=== PATIENT | male | born 1965 | race Caucasian/White ===

== ENCOUNTER 2023-07-05 15:40 | Emergency (ER) | payer BC, SELFPAY ==
[2023-07-05 15:43] VITALS: BP 133/98
[2023-07-05] MEDS: KEFLEX 500 MG PO (17:10)
--- NOTE | 2023-07-05 17:24 | EDRN ---
Reviewed discharge instructions with patient. Verbalized understanding.
[2023-07-05 17:25] VITALS: BP 132/84
--- NOTE | 2023-07-05 17:47 | ED.SKININJ ---
HPI-Injury
General
Chief Complaint: Skin Surface Trauma
Source: patient
Exam Limitations: none
Time Seen by Provider: 07/05/23 16:37
Nursing documentation reviewed up to this point in time: agreed with
Travel History
Have you had any contact with someone who has COVID-19?: No
Do you have any symptoms of coronavirus? Fever > 100 degrees, chills, cough, shortness of breath, sore throat, loss of taste or smell, muscle aches, or headache?: No
History of Present Illness-Injury
Is this injury a work related problem?: No
Is pt an associate of [facility]?: No
Initial Injury comments:
Accidentally cut thumb on table saw. Has laceration with large avulsion to palmar surface of left distal thumb. injuryoccurred just senior scientist
Past History
Past History
ED Past Medical History: None
ED Past Surgical History: None
Review of Systems
Review of Systems
Allergies reviewed?: Yes
All Other Systems: ROS reviewed and negative except as documented in HPI and ROS
Constitutional: Reports no symptoms
Musculoskeletal: Reports no symptoms
Skin: Reports other (laceration with large skin avulsion to left distal thumb)
Neurological: Reports no symptoms
Psychiatric: Reports no symptoms
Skin Exam
Laceration
Left Distal Palmar Thumb:
Length in cm: 3
Orientation: vertical
Type of Laceration: simple
Any active bleeding?: no active bleeding
Distal skin color and temperature: normal-warm & good color
Normal distal neurovascular exam: Yes
Range of motion: full
Phy Exam
General Physical Exam
General Presentation: well appearing and no apparent distress
General age: appears stated age
General Skin: warm and dry
General Habitus: normal
General Mental: alert
Musculoskeletal Exam
Musculoskeletal Exam: full ROM and neuro vasc intact
Skin Exam
Skin Exam: normal color, warm/dry and no rash
Psychiatric Exam
Psychiatric Exam: normal mood/affect
Course
Orders/Labs/Results
Orders:
Orders
07/05/23 17:07
Cephalexin Monohydrate [Keflex] 500 mg PO NOW STA
Vital Signs
Initial and Last Documented VS:
Initial Vital Signs
Temp Pulse Resp BP Pulse Ox
99 F 92 18 133/98 97
07/05/23 15:43 07/05/23 15:43 07/05/23 15:43 07/05/23 15:43 07/05/23 15:43
Last Documented Vital Signs
Temp Pulse Resp BP Pulse Ox
99 F 78 18 132/84 98
07/05/23 15:43 07/05/23 17:25 07/05/23 17:25 07/05/23 17:25 07/05/23 17:25
Procedures
Laceration Closure
Left Distal Palmar Thumb:
Status of Wound: clean
Description of Wound Edges: sharp
Preparation: cleaned with saline and cleaned with Betadine
Anesthesia: 1% Lidocaine
Revision/Debridement: routine- no revision
Wound exploration: explored to base- no FB
Type of Closure: single layer closure
Skin Closure Material: 5-0 prolene
*Critical Care Note
Total Time (30-74mins, 75-104mins- exclusive of procedures): Not Applicable
Update Note
Update Note:
proximal 1cm of wound closed with 5-0 prolene. Unable to close remainder due to skin avuslion. Wound dessed with antibiotic ointment and gauze. Placed on Keflex BID. He is discharged home and will follow up with Dr. Perkins for further wound
treatment.
ED Attending Note
-
Portions of this chart may have been created with voice recognition software.� Occasional wrong word or��sound alike� substitutions may have occurred due to the inherent limitations of voice recognition software.
Discharge Plan
Departure
Patient Disposition: Home (Routine Discharge)
Date of Disposition: 07/05/23
Time of Disposition: 17:07
Patient with high blood pressure during this ER visit?: No
Condition: Good
Covid-19: Not Applicable
Discharge Problem:
Avulsion of skin of thumb
Instructions: Wound Care (DC), Laceration Repair With Stitches (DC)
Prescriptions:
New
cephalexin 500 mg capsule
500 mg PO BID 7 Days Qty: 14 0RF
Referrals:
Deena Richardson CRNP [Family Provider] -
Delon Perkins MD [Active] - Call in 1-3 days for appt
Activity Restrictions/Additional Instructions:
Keep wound clean and dry, apply antibiotic ointment twice daily and keep covered.
Interventions
Interventions:
*Risk Screen - Suicide Last Done: 07/05/23 15:43
*General Assessment Last Done: 07/05/23 15:43
*Neglect/Abuse Screening Last Done: 07/05/23 15:43
ED- Fall Risk Assessment Last Done: 07/05/23 15:58
*ED COVID-19 Vaccine History Last Done: 07/05/23 15:58
*Nursing Disposition Last Done: 07/05/23 17:25
ED-Skin Assessment Last Done: 07/05/23 15:58
Discharge Date and Time
Discharge Date/Time: 07/05/23 17:26
Print Language: LITHUANIAN
== END 2023-07-05 17:26 | disposition home or self-care (01) ==
LOC: EMR 15:40
PROVIDERS: EMERGENCY PHYSICIAN Emergency Medicine; FAMILY PHYSICIAN Nurse Practitioner Adult Health
DX: S61.012A Laceration without foreign body of left thumb without damage to nail, initial encounter (principal); W27.0XXA Contact with workbench tool, initial encounter
CPT/HCPCS: 99283; 12001